=== PATIENT | male | born 1995 | race American Indian/Alaskan Native ===

== ENCOUNTER 2017-02-21 10:00 | Emergency (ER) | payer MEDICAID ==
[~2017-02-21] VITALS: Ht 175.3 cm; Wt 72.6 kg
[~2017-02-21 10:00] MED LIST: KENALOG 0.1% CR15 GM APPLIC; SELENIUM SULFI120 ML TP
[2017-02-21] MEDS ORDERED: NKM (10:07)
[2017-02-21 10:10] VITALS: BP 130/90
--- NOTE | 2017-02-21 10:17 | Emergency Room Report ---
History of Present Illness General Chief Complaint: Upper Respiratory Illness Source: Patient Present Illness HPI Patient with several days of mucoid d/c from nose, sore throat and now cough. Taking Nyquil with little relief. Allergies: Coded Allergies: NO KNOWN ALLERGIES (Unverified Allergy, Unknown, 07/15/15) Patient History Past Medical History: see triage record Social History: Reports: smoking Social History Narrative with sig other Nursing Documentation-PMH Past Medical History: No Stated History Physical Exam Vital Signs Date Time Temp Pulse Resp B/P Pulse Ox O2 Delivery O2 Flow Rate FiO2 02/21/17 10:02 98.1 86 16 130/90 98 Room Air Sp02 EP Interpretation: reviewed, normal General Appearance: well appearing, no apparent distress Head: normocephalic, atraumatic Eyes: bilateral eye PERRL, bilateral eye normal inspection ENT: TMs + canals normal, moist mucus membranes - gold teeth, pharyngeal erythema, other - mucoid d/c nose Neck: full range of motion, supple Respiratory: lungs clear, normal breath sounds, no respiratory distress, speaking full sentences Cardiovascular #1: regular rate, rhythm Cardiovascular #2: 2+ radial (L) Gastrointestinal: normal inspection, scaphoid Musculoskeletal: digits/nails normal, gait/station normal, normal range of motion Neurologic: alert, oriented x3, normal gait, grossly normal Psychiatric: mood/affect normal Skin: no rash Medical Decision Making Diagnostic Impression: Primary Impression: Sinusitis Qualified Codes: J01.90 - Acute sinusitis, unspecified Additional Impression: Upper respiratory infection Qualified Codes: J06.9 - Acute upper respiratory infection, unspecified ER Course Patient presets with URI sy. Ddx: sinusitis, pharyngitis, viral syndrome, bronchitis amongst others. Based on exam, sinusitis and URI are dx. Will treat with antibiotics as purulent d/c nose. No bronchospasm. Patient stable for outpatient observation and treatment. Last Vital Signs Date Time Temp Pulse Resp B/P Pulse Ox O2 Delivery O2 Flow Rate FiO2 02/21/17 10:30 98.1 86 16 130/90 98 Room Air Status: improved Disposition: HOME, SELF-CARE Condition: Improved Scripts Promethazine HCl/Codeine (Prometh-Codein 6.25-10 mg/5 ml) 5 Ml Syrup 5 ML PO QHS, #30 ML Prov: Aman Ge M.D. 02/21/17 Pseudoephedrine Hcl* (SUDAFED*) 60 Mg Tablet 60 MG PO Q6H Y for congestion, #12 TAB Prov: Aman Ge M.D. 02/21/17 Levofloxacin* (LEVAQUIN*) 500 Mg Tablet 500 MG ORAL DAILY, #6 TAB Prov: Aman Ge M.D. 02/21/17 Aman Ge M.D. February 21, 2017 10:17
[2017-02-21] MEDS ORDERED: LEVAQUIN500 MG ORAL (10:23)
[2017-02-21] MEDS ORDERED: PSEUDOEPHEDRINE60 MG PO (10:23)
[2017-02-21] MEDS ORDERED: PROMETH-CODEIN 65 ML PO (10:23)
[2017-02-21 10:30] VITALS: BP 130/90
[2017-02-21] MEDS ORDERED: Levofloxacin 500mg tab ORAL ONE (10:30)
== END 2017-02-21 10:30 | disposition home or self-care (01) ==
LOC: EMR 10:23
DX: J01.90 Acute sinusitis, unspecified (principal); J06.9 Acute upper respiratory infection, unspecified; F17.200 Nicotine dependence, unspecified, uncomplicated
CPT/HCPCS: 99284

== ENCOUNTER 2017-03-05 11:18 | Emergency (ER) | payer MEDICAID ==
[~2017-03-05] VITALS: Ht 175.3 cm; Wt 72.6 kg
[~2017-03-05 11:18] MED LIST changes: +LEVAQUIN500 MG ORAL; +NKM; +PROMETH-CODEIN 65 ML PO; +PSEUDOEPHEDRINE60 MG PO
[2017-03-05] MEDS ORDERED: Tetracaine 0.5% Opth Soln BOTH EYES ONE (13:15)
[2017-03-05 14:00] VITALS: BP 149/86
--- NOTE | 2017-03-05 14:22 | Emergency Room Report ---
History of Present Illness General Chief Complaint: Headache Source: Patient Present Illness HPI Patient complains of headache and blurry vision 2 days This was preceded by a "seizure". Some crusty discharge this AM. No fevers. He is concerned about possible glaucoma. He is using a magnifying glass to read on his cell phone. No pain in his eyes. Headache is frontal and radiates to occiput/neck. 7/10 constant, pressure and aching. No h/o migraines. Seizures - usually realated to taking trazadone. He reports his eyes are open when he has these seizures. No LOC but jerking related to trazadone. Not on any chronic anti-seizure medication. H/O schizophrenia. Risperdal 2 mg 2 at bedtime, Trazodone 50 mg 1-2 po hs, Cogentin 1 mg BID prn muscle stiffness. No SI or HI. Allergies: Coded Allergies: NO KNOWN ALLERGIES (Unverified Allergy, Unknown, 07/15/15) Patient History Past Medical History: see triage record, psych hx Social History: Reports: smoking Social History Narrative disabled Reviewed Nursing Documentation: PMH: Agreed, PSxH: Agreed Nursing Documentation-PMH Past Medical History: No History, Except For Hx Seizures: Yes Review of Systems All Other Systems: negative except mentioned in HPI Physical Exam Vital Signs Date Time Temp Pulse Resp B/P Pulse Ox O2 Delivery O2 Flow Rate FiO2 03/05/17 11:33 98.2 72 16 155/99 100 Room Air Sp02 EP Interpretation: reviewed, normal General Appearance: well appearing, no apparent distress, GCS 15 Head: normocephalic, atraumatic Eyes: bilateral eye EOMI, bilateral eye Fundiscopic, bilateral eye PERRL, bilateral eye normal inspection, bilateral eye visual acuity - see recorded ENT: moist mucus membranes - gold-capped teeth Neck: full range of motion, supple, no bony tend Respiratory: lungs clear, normal breath sounds Cardiovascular #1: regular rate, rhythm Cardiovascular #2: 2+ radial (R) Gastrointestinal: normal inspection, normal bowel sounds, non tender, no mass, non-distended Musculoskeletal: back normal, gait/station normal, normal range of motion Neurologic: alert, oriented x3, help desk engineer III-XII nml as tested, motor strength/tone normal, DTRs symmetric, sensory intact, cerebellar normal, normal gait Psychiatric: mood/affect normal - slightly flat Skin: normal inspection, warm/dry Procedures Eye Procedure Eye Procedure : Consent: Verbal Alcaine Drops Administered: Yes Eye FB Removal: other - slit lamp exam Patient Tolerated: Well Complications: None Progress no cells ant chamber, no hyphoemae, no corneal abrasions Medical Decision Making Diagnostic Impression: Primary Impression: Blurred vision, bilateral Additional Impressions: Extrapyramidal and movement disorder Alleged seizures Ruled Out: Glaucoma ER Course Patient with blurry vision after reported seizure with headache. Ddx: medication reaction, migraine variant, glaucoma, conjuntivitis amongst others. Tonometry and slit lamp exams indicated. Concern over "seizures". Need to review medications. Non-focal neurologic exam excludes intracranial process - CT not indicated. Can't be certain if "seizures" related to EPS or complex seizures. (Seems like cogentin helps with control.) Slit lamp no cells or abrasions. Tonometry = 18 bilat. Patient improved with treatment. Understands needs to follow up with [facility] for blurred vision and "seizures". Patient stable for outpatient observation and treatment. Last Vital Signs Date Time Temp Pulse Resp B/P Pulse Ox O2 Delivery O2 Flow Rate FiO2 03/05/17 14:35 98.2 82 18 149/86 99 Room Air Status: improved Disposition: HOME, SELF-CARE Condition: Improved Scripts Naphazoline Hcl/Phenir Mal (NAPHCON-A EYE DROPS) 15 Ml Drops 1 DRP OP Q6HR, #10 ML Prov: Aman Ge M.D. 03/05/17 Sulfacetamide Sodium (BLEPH-10) 5 Ml Drops 2 DROP OP Q6HR Y for both eyes, #10 ML Prov: Aman Ge M.D. 03/05/17 Referrals: [facility] (PCP) Aman Ge M.D. March 05, 2017 14:22
[2017-03-05] MEDS ORDERED: NAPHCON-A EYE D15 ML OP (14:25)
[2017-03-05] MEDS ORDERED: BLEPH-105 ML OP (14:25)
[2017-03-05 14:35] VITALS: BP 149/86
[2017-03-05] MEDS ORDERED: RISPERIDONE1 MG ORAL (16:12)
[2017-03-05] MEDS ORDERED: TRAZODONE HCL150 MG ORAL (16:12)
[2017-03-05] MEDS ORDERED: CETAPHIL GENTL TP (18:41)
[2017-03-05] MEDS ORDERED: COGENTIN1 MG/ML PO (18:41)
[2017-03-05] MEDS ORDERED: VIRTUSSIN AC L118 ML PO (18:41)
[2017-03-05] MEDS ORDERED: COGENTIN1 MG/ML IM (18:41)
== END 2017-03-05 14:35 | disposition home or self-care (01) ==
LOC: EMR 12:05
DX: H53.8 Other visual disturbances (principal); G25.9 Extrapyramidal and movement disorder, unspecified; G40.89 Other seizures; F20.9 Schizophrenia, unspecified; Z79.899 Other long term (current) drug therapy
CPT/HCPCS: 99284

== ENCOUNTER 2017-09-11 14:44 | Emergency (ER) | payer MEDICAID ==
[~2017-09-11] VITALS: Ht 185.4 cm; Wt 74.8 kg
[~2017-09-11 14:44] MED LIST changes: +BLEPH-105 ML OP; +CETAPHIL GENTL TP; +COGENTIN1 MG/ML IM; +COGENTIN1 MG/ML PO; +NAPHCON-A EYE D15 ML OP; +RISPERIDONE1 MG ORAL; +TRAZODONE HCL150 MG ORAL; +VIRTUSSIN AC L118 ML PO
[2017-09-11 14:50] VITALS: BP 147/112
[2017-09-11] MEDS ORDERED: IBUPROFEN600 MG ORAL (15:09)
[2017-09-11] MEDS ORDERED: AMOXICILLIN500 MG ORAL (15:09)
--- NOTE | 2017-09-11 15:42 | Emergency Room Report ---
History of Present Illness General Chief Complaint: Flu Like Symptoms Source: Patient (YARI MARSH) Present Illness HPI The patient is a 22-year-old male presenting for sore throat and cough for the past 2 days. He admits to subjective fevers. He denies any known sick contacts recent travel. Pain is a 5/10 dull ache to the back of the throat does not radiate. Worse with cough and swallowing. He denies any other symptoms including nausea, vomiting, shortness of breath, chest pain, rash, neck pain or stiffness (YARI MARSH.Lupe) Allergies: Coded Allergies: NO KNOWN ALLERGIES (Unverified Allergy, Unknown, 07/15/15) Patient History Past Medical History: see triage record Pertinent Family History: none Reviewed Nursing Documentation: PMH: Agreed, PSxH: Agreed (YARI MARSH) Nursing Documentation-PMH Past Medical History: No History, Except For Hx Seizures: Yes (YARI MARSH) Review of Systems All Other Systems: negative except mentioned in HPI (YARI MARSH.Lupe) Physical Exam Vital Signs Date Time Temp Pulse Resp B/P (MAP) Pulse Ox O2 Delivery O2 Flow Rate FiO2 09/11/17 14:50 97.7 89 18 147/112 99 Room Air Sp02 EP Interpretation: reviewed, normal General Appearance: no apparent distress, alert, GCS 15, non-toxic Head: normocephalic, atraumatic Eyes: bilateral eye normal inspection, bilateral eye PERRL ENT: hearing grossly normal, no angioedema, normal voice, TMs + canals normal, uvula midline, tonsillar swelling, pharyngeal erythema Neck: full range of motion, supple/symm/no masses Respiratory: chest non-tender, lungs clear, normal breath sounds, speaking full sentences Cardiovascular #1: regular rate, rhythm, no edema Musculoskeletal: back normal, gait/station normal, normal range of motion, non- tender Neurologic: alert, oriented x3, responsive, motor strength/tone normal, sensory intact, speech normal Psychiatric: judgement/insight normal, memory normal, mood/affect normal, no suicidal/homicidal ideation Skin: normal color, no rash, warm/dry, well hydrated Lymphatic: adenopathy (YARI MARSH) Medical Decision Making PA Attestation Dr. Ge is my supervising physician. Patient management was discussed with my supervising physician (YARI MARSH) Diagnostic Impression: Primary Impression: Pharyngitis, acute Qualified Codes: J02.9 - Acute pharyngitis, unspecified ER Course The patient is a 22-year-old male presenting for sore throat and cough for the past 2 days Differential diagnosis include but not limited to pharyngitis, sinusitis, AOM, bronchitis, PNA Physical exam: Vitals within normal limits. Afebrile. No apparent distress HEENT exam: There is bilateral tonsillar edema, erythema. Uvula midline. Moist mucous membranes. There is bilateral cervical lymphadenopathy. Lungs are clear to auscultation bilaterally Skin is warm and dry. No rash The patient will be discharged home with a prescription for amoxicillin and is given ER precautions. Patient will followup with primary care (YARI MARSH) Last Vital Signs Date Time Temp Pulse Resp B/P (MAP) Pulse Ox O2 Delivery O2 Flow Rate FiO2 09/11/17 14:50 97.7 89 18 147/112 99 Room Air Status: improved (YARI MARSH) Disposition: HOME, SELF-CARE Condition: Improved Scripts Amoxicillin* (AMOXIL*) 500 Mg Capsule 500 MG ORAL Q12HR, #20 CAP Prov: YARI MARSH.Lupe 09/11/17 Ibuprofen* (MOTRIN*) 600 Mg Tablet 600 MG ORAL Q8H Y for For Pain, #30 TAB 0 Refills Prov: YARI MARSH 09/11/17 Referrals: [facility] (PCP) Patient Instructions: Pharyngitis Additional Instructions: I discussed my findings with the patient. All questions and concerns have been answered. Treatment and medication compliance have been addressed. I advised the patient that they need to follow up with PMD in 3-5 days. Return to ED if pain remains or worsens, cough worsens or remains, you notice blood in your sputum, you notice wheezing, you experience a fever, or if needed for any reason. Patient verbalized understanding of discharge instructions. YARI MARSH Sep 11, 2017 15:42 Aman Ge M.D. Sep 12, 2017 03:19
[2017-09-11 15:52] VITALS: BP 147/112
== END 2017-09-11 15:52 | disposition home or self-care (01) ==
LOC: EMR 15:10
DX: J02.9 Acute pharyngitis, unspecified (principal)
CPT/HCPCS: 99283